=== PATIENT | female | born 1995 | race Two or more races ===

== ENCOUNTER 2019-12-21 10:38 | Emergency (ER) | payer MEDICAID, OTHER ==
[~2019-12-21] VITALS: Ht 162.6 cm; Wt 65.8 kg
[2019-12-21 12:25] VITALS: BP 94/64
[2019-12-21 12:30] LABS: Basophils # (auto) 0 10 ^3/uL (0-0.2); Basophils % (auto) 0.2 % (0.0-2.0); Eosinophils # (auto) 0.2 10 ^3/uL (0-0.8); Eosinophils % (auto) 1.1 % (0.0-7.0); Hematocrit 34.9 % (36.0-46.0); Lymphocytes # (auto) 1.2 10 ^3/uL (0.4-5.4); Lymphocytes % (auto) 8.2 % (10.0-50.0); Mean Corpuscular Hemoglobin 32.4 pg (28.0-32.0); Mean Corpuscular Hgb Conc. 34.3 g/dL (32.0-36.0); Mean Corpuscular Volume 94.3 fL (80.0-100.0); Monocytes # (auto) 0.8 10 ^3/uL (0-1.3); Monocytes % (auto) 5.6 % (0.0-12.0); Neutrophils # (auto) 12.2 10 ^3/uL (1.6-8.6); Neutrophils % (auto) 84.9 % (37.0-80.0); Platelet Count (auto) 172 10^3/uL (140-450); Red Cell Distribution Width 12.8 % (11.8-14.3); White Blood Cell 14.4 10^3/uL (4.4-10.8)
[2019-12-21 12:44] LABS: Albumin 3.2 g/dL (3.4-5.0); Calcium 8.9 mg/dL (8.5-10.1); Potassium 3.8 mmol/L (3.5-5.1)
[2019-12-21 12:47] LABS: BUN/Creatinine Ratio 14.8; Total Protein 7.3 g/dL (6.4-8.2)
[2019-12-21 12:54] LABS: Partial Thromboplastin Time 29.1 sec (23.64-32.05)
== END 2019-12-21 13:28 | disposition home or self-care (01) ==
LOC: ER 10:38 → LDRP 12:35 → ER 12:46 → UNDODISOB 13:28
PROVIDERS: ADMIT Specialist; ATTEND Specialist
DX: O99.112 Other diseases of the blood and blood-forming organs and certain disorders involving the immune mechanism complicating pregnancy, second trimester (principal); Z86.32 Personal history of gestational diabetes; Z3A.20 20 weeks gestation of pregnancy
CPT/HCPCS: 36415; 59025; 76805; 80053; 81002; 84702; 85025; 85610; 85730; 86850; 86900; 86901; 99284; G0378